=== PATIENT | female | born 1960 | race Caucasian/White ===

== ENCOUNTER 2019-05-23 19:24 | Emergency (ER) | payer MEDICARE, MEDICAID ==
[~2019-05-23] VITALS: Ht 177.8 cm; Wt 60.8 kg
[2019-05-23 19:48] VITALS: BP 121/73
[2019-05-23] MEDS ORDERED: LIDOCAINE W/ EPINEPHRINE 2% INJ 20ML VIAL IJ ONE (21:30)
[2019-05-23] MEDS ORDERED: ACETAMINOPHEN/CODEINE#3 (300/30mg) TAB PO ONE (21:30)
[2019-05-23] MEDS ORDERED: cefTRIAXone SOD 1,000 MG VL IM ONE (21:30)
== END 2019-05-23 22:07 | disposition home or self-care (01) ==
LOC: ER 19:28
DX: S61.412A Laceration without foreign body of left hand, initial encounter (principal); W26.9XXA Contact with unspecified sharp object(s), initial encounter; Y93.89 Activity, other specified; Y99.8 Other external cause status; Y92.89 Other specified places as the place of occurrence of the external cause
CPT/HCPCS: 12004; 73130; 96372; 99283; J0696